=== PATIENT | male | born 1940 | race Hispanic/Latino ===

== ENCOUNTER → 2017-07-04 | Outpatient (CLI) | payer OTHER ==
[~2017-07-04] MED LIST: AMLO-128 PO; ASPI-555 PO; ATOR20TA65 PO; HYDR12.54 PO; ROPI0.5T5 PO; TRAM50TA4 PO
== END | disposition home or self-care (01) ==
LOC: RAH 12:41
PROVIDERS: ATTEND Neurological Surgery
DX: M51.16 Intervertebral disc disorders with radiculopathy, lumbar region (principal); M48.062 Spinal stenosis, lumbar region with neurogenic claudication; N28.1 Cyst of kidney, acquired
CPT/HCPCS: 72148

== ENCOUNTER 2017-07-21 10:00 | Inpatient (IN) | payer OTHER ==
[~2017-07-21] VITALS: Ht 172.7 cm; Wt 90.1 kg
[2017-07-21 10:06] LABS: BASOPHILS % (AUTO) 0.5 % (0.0-5.0); EOSINOPHILS % (AUTO) 2.2 % (0.0-8.0); HEMATOCRIT 37.9 % (42-54); LYMPHOCYTES % (AUTO) 20.6 % (21.0-51.0); MEAN CORPUSCULAR HEMOGLOBIN 32.5 pg (27.0-33.0); MEAN CORPUSCULAR HGB CONC 35.5 g/dL (32.0-36.0); MEAN CORPUSCULAR VOLUME 91.5 fL (79-99); MONOCYTES % (AUTO) 8.6 % (3.0-13.0); NEUTROPHILS % (AUTO) 68.1 % (40.0-77.0); PLATELET COUNT (AUTO) 227 K/uL (130-400); RED BLOOD CELL COUNT(AUTO) 4.14 MIL/uL (4.50-6.20); RED CELL DISTRIBUTION WIDTH 13.1 % (11.0-15.5); WHITE BLOOD COUNT (AUTO) 5.2 K/uL (4.8-10.8)
[2017-07-21 10:16] LABS: POTASSIUM 4.5 mmol/L (3.5-5.1)
[2017-07-21 10:32] VITALS: BP 131/59
[2017-07-21] MEDS ORDERED: ASPI-555 PO (11:06)
[2017-07-21] MEDS ORDERED: ATOR20TA65 PO (11:06)
[2017-07-21] MEDS ORDERED: ROPI0.5T5 PO (11:06)
[2017-07-21] MEDS ORDERED: HYDR12.54 PO (11:06)
[2017-07-21] MEDS ORDERED: AMLO-128 PO (11:06)
[2017-07-24] VITALS (27 sets, daily range): BP systolic 102–150; BP diastolic 49–78
[2017-07-24] MEDS: CEFAZOLIN SODIUM 1 GM VIAL IVP SCH ×2 (06:00→07:40)
[2017-07-24] MEDS ORDERED: DURAMORPH PF1 MG/ML 10ML AMP IV ONE (06:18)
[2017-07-24] MEDS ORDERED: BUPIVACAINE/EPI/PF 0.25% 30ML VIAL IJ ONE (06:18)
[2017-07-24] MEDS ORDERED: THROMBIN-JMI 20000 UNIT KIT TP ONE (06:19)
[2017-07-24] MEDS ORDERED: BACITRACIN 50,000 UNIT VIAL ONE (06:19)
[2017-07-24] MEDS ORDERED: LACTATED RINGERS 1000ML 1,000 ML IV ONE (06:36)
[2017-07-24] MEDS ORDERED: PROPOFOL 10 MG/ML 20ML VIAL IV ONE (07:04)
[2017-07-24] MEDS ORDERED: GLYCOPYRROLATE 0.2 MG/ML 5 ML VIAL ONE (07:04)
[2017-07-24] MEDS ORDERED: ONDANSETRON HCL 4 MG/2 ML VIAL ONE ×2 (07:04→10:20)
[2017-07-24] MEDS ORDERED: SUCCINYLCHOLINE 200MG/10ML SYR ONE ×2 (07:04→10:20)
[2017-07-24] MEDS ORDERED: LIDOCAINE PF 2% 5ML ABBOJECT ONE (07:04)
[2017-07-24] MEDS ORDERED: DEXAMETHASONE SOD PHOSPHATE 10MG/ML 1ML VIAL ONE ×2 (07:04→10:20)
[2017-07-24] MEDS ORDERED: NEOSTIGMINE METHYLSULFATE 1MG/ML IV ONE (07:04)
[2017-07-24] MEDS ORDERED: FENTANYL CITRATE PF 50 MCG/1 ML 2ML VIAL ONE ×2 (07:05→08:10)
[2017-07-24] MEDS ORDERED: MIDAZOLAM HCL 1 MG/ML 2ML VIAL ONE (07:05)
[2017-07-24 07:27] LABS: CREATININE 0.9 mg/dL (0.5-1.5); POTASSIUM 4.3 mmol/L (3.5-5.1)
[2017-07-24] MEDS ORDERED: EPHEDRINE SULFATE 50 MG/ML AMPULE ONE (08:23)
[2017-07-24] MEDS ORDERED: PHENYLEPHRINE HCL 10 MG/ML 1ML VIAL IV ONE (08:24)
[2017-07-24] MEDS ORDERED: METOCLOPRAMIDE 10 MG/2 ML VIAL ONE (10:20)
[2017-07-24] MEDS ORDERED: LIDOCAINE HCL 2% JELLY 5 ML ONE (10:20)
[2017-07-24] MEDS ORDERED: ROCURONIUM BROMIDE 10MG/1ML 5ML VL ONE ×2 (10:20)
[2017-07-24] MEDS ORDERED: FUROSEMIDE 10 MG/ML 4ML VIAL ONE (10:49)
[2017-07-24] MEDS ORDERED: MEPERIDINE-PF 50 MG/ML SYG ONE (11:50)
[2017-07-24] MEDS: LACTATED RINGERS 1000ML 1,000 ML IV SCH (14:45)
[2017-07-24] MEDS: DEXAMETHASONE SOD PHOSPHATE 4 MG/ML 1ML VIAL IVP SCH ×2 (14:45→18:42)
[2017-07-24] MEDS ORDERED: PROMETHAZINE HCL 25 MG/ML 1ML AMPULE IM PRN (14:45)
[2017-07-24] MEDS ORDERED: MORPHINE SULFATE 2 MG/ML 1ML SYG IVP PRN (14:45)
[2017-07-24] MEDS ORDERED: SODIUM CHLORIDE 0.9% 10 ML VIAL IVP PRN (14:45)
[2017-07-24] MEDS ORDERED: WATER FOR INJECTION,STERILE 20 ML VIAL IJ SCH (18:00)
[2017-07-24] MEDS ORDERED: CEFAZOLIN SODIUM 1 GM VIAL IVP SCH (18:00)
[2017-07-24] MEDS: ROPINIROLE HCL 1 MG TABLET PO SCH (19:50)
[2017-07-24] MEDS ORDERED: BENZOCAINE/MENTH/CETYLPYRD CL 1 EACH LOZENGE MM ONE (22:16)
[2017-07-24] MEDS ORDERED: BENZOCAINE/MENTH/CETYLPYRD CL 1 EACH LOZENGE MM PRN (22:30)
[2017-07-25] VITALS: BP 118/61
[2017-07-25] MEDS: DEXAMETHASONE SOD PHOSPHATE 4 MG/ML 1ML VIAL IVP SCH (03:37)
[2017-07-25] MEDS: LACTATED RINGERS 1000ML 1,000 ML IV SCH (03:38)
[2017-07-25 04:00] VITALS: BP 123/54
[2017-07-25 07:34] VITALS: BP 137/71
[2017-07-25] MEDS ORDERED: TRAM50TA4 PO (07:52)
[2017-07-25] MEDS ORDERED: ATORVASTATIN CALCIUM 20 MG TABLET PO SCH (09:00)
[2017-07-25] MEDS ORDERED: AMLODIPINE BENAZEPRIL PO SCH (09:00)
[2017-07-25] MEDS ORDERED: HYDROCHLOROTHIAZIDE 25 MG TABLET PO SCH (09:00)
[2017-07-25] MEDS ORDERED: [UNRECOGNIZED DRUG - OTHER] PO SCH (09:00)
[2017-07-25] MEDS ORDERED: ASPIRIN 81 MG EC TAB PO SCH (09:00)
[2017-07-25] MEDS: ROPINIROLE HCL 1 MG TABLET PO SCH (09:27)
== END 2017-07-25 11:40 | disposition home or self-care (01) | DRG 517 ==
LOC: EDSTATUS 10:00 → DAHIP 07-24 05:57 → 4AH 07-24 12:45
PROVIDERS: ADMIT Neurological Surgery; ATTEND Neurological Surgery
PROC: 01NB0ZZ Release Lumbar Nerve, Open Approach (ICD-10-PCS; principal; 2017-07-24 07:36)
PROC: 0HB6XZZ Excision of Back Skin, External Approach (ICD-10-PCS; 2017-07-24 07:36)
PROC: 01NR0ZZ Release Sacral Nerve, Open Approach (ICD-10-PCS; 2017-07-24 07:36)
PROC: 4A11X4G Monitoring of Peripheral Nervous Electrical Activity, Intraoperative, External Approach (ICD-10-PCS; 2017-07-24 07:36)
PROC: BR1B1ZZ Fluoroscopy of Lumbosacral Joint using Low Osmolar Contrast (ICD-10-PCS; 2017-07-24 07:36)
DX: M48.061 Spinal stenosis, lumbar region without neurogenic claudication (principal); G20 Parkinson's disease; R13.10 Dysphagia, unspecified; E78.5 Hyperlipidemia, unspecified; M19.90 Unspecified osteoarthritis, unspecified site; R26.9 Unspecified abnormalities of gait and mobility; F41.9 Anxiety disorder, unspecified; I10 Essential (primary) hypertension; I25.10 Atherosclerotic heart disease of native coronary artery without angina pectoris; Z85.46 Personal history of malignant neoplasm of prostate; Z92.3 Personal history of irradiation
CPT/HCPCS: 36415; 72020; 80048; 85025; A4218; A4344; J0330; J0690; J1100; J1940; J2001; J2175; J2250; J2274; J2370; J2405; J2704; J2710; J2765; J3010; J3490; J7120

== ENCOUNTER → 2020-06-06 | Outpatient (CLI) | payer OTHER ==
[~2020-06-06] MED LIST changes: -AMLO-128 PO; +AMLO-97 PO; -ASPI-555 PO; +ASPI-556 PO; -ROPI0.5T5 PO; +ROPI0.5T7 PO
== END | disposition home or self-care (01) ==
LOC: SHCH 10:29
PROVIDERS: ATTEND Internal Medicine Cardiovascular Disease
DX: R06.09 Other forms of dyspnea (principal); R60.9 Edema, unspecified
CPT/HCPCS: 93306; 93356

== ENCOUNTER → 2020-06-14 | Outpatient (CLI) | payer OTHER | END | disposition home or self-care (01) | LOC: SHCH 08:53 | PROVIDERS: ATTEND Internal Medicine Cardiovascular Disease | DX: I82.432 Acute embolism and thrombosis of left popliteal vein (principal); I87.2 Venous insufficiency (chronic) (peripheral) | CPT/HCPCS: 93970 ==

== ENCOUNTER → 2020-06-19 | Outpatient (CLI) | payer OTHER | END | disposition home or self-care (01) | LOC: SHCH 11:18 | PROVIDERS: ATTEND Internal Medicine Cardiovascular Disease | DX: I70.293 Other atherosclerosis of native arteries of extremities, bilateral legs (principal); I87.2 Venous insufficiency (chronic) (peripheral) | CPT/HCPCS: 93925 ==

== ENCOUNTER → 2020-08-03 | Outpatient (CLI) | payer MEDICARE | END | disposition home or self-care (01) | LOC: SHCH 14:28 | PROVIDERS: ATTEND Internal Medicine Cardiovascular Disease | DX: I82.210 Acute embolism and thrombosis of superior vena cava (principal); I87.2 Venous insufficiency (chronic) (peripheral) | CPT/HCPCS: 93971 ==

== ENCOUNTER → 2020-09-27 | Outpatient (CLI) | payer MEDICARE | END | disposition home or self-care (01) | LOC: SHCH 13:00 | PROVIDERS: ATTEND Internal Medicine Cardiovascular Disease | DX: I82.409 Acute embolism and thrombosis of unspecified deep veins of unspecified lower extremity (principal); K21.9 Gastro-esophageal reflux disease without esophagitis; Z86.718 Personal history of other venous thrombosis and embolism; R22.42 Localized swelling, mass and lump, left lower limb; M79.605 Pain in left leg | CPT/HCPCS: 93970 ==